=== PATIENT | male | born 1995 | race African-American/Black ===

== ENCOUNTER 2017-06-28 22:05 | Inpatient (IN) | payer OTHER ==
[~2017-06-28] VITALS: Ht 180.3 cm; Wt 70.8 kg
[2017-06-29] MEDS ORDERED: MORPHINE SULFATE 4 MG/ML CPJ (NOT FOR IM USE) IV ONE (02:15)
[2017-06-29] MEDS ORDERED: ONDANSETRON HCL 4MG/2ML VIAL IV ONE (02:15)
[2017-06-29 02:37] LABS: HEMATOCRIT. 46.2 % (42.0-52.0); HEMOGLOBIN. 16.2 g/dL (14.0-18.0); MEAN CORPUSCULAR HEMOGLOBIN 31.3 pg (28.0-32.0); MEAN CORPUSCULAR VOLUME 89.2 fL (80.0-94.0); PLATELET 220 x1000/uL (130-400); RED BLOOD CELL COUNT 5.18 mill/uL (4.7-6.1); RED CELL DISTRIBUTION WIDTH 12.5 % (11.6-14.6)
[2017-06-29] MEDS ORDERED: MORPHINE SULFATE 2 MG/ML CPJ (NOT FOR IM USE) IV NR (02:45)
[2017-06-29 02:49] LABS: CARBON DIOXIDE 28 mEq/L (21-32); CHLORIDE 103 mEq/L (98-107)
[2017-06-29] MEDS ORDERED: PIPERACILLIN/TAZOBACTAM 3.375GM/50ML PREMIX IV SCH ×2 (04:45→05:00)
[2017-06-29] MEDS ORDERED: CEFTRIAXONE SODIUM 1 G/VIAL IV ONE (04:45)
[2017-06-29] MEDS ORDERED: SKIN ADHESIVE 0.7 GM EA TOP ONE (06:58)
[2017-06-29] MEDS ORDERED: BUPIVACAINE HCL 0.5% (5MG/ML) 50ML ONE (06:58)
[2017-06-29] MEDS ORDERED: DEXT 5%/0.45% NACL KCL 20MEQ/L 1,000 ML IV SCH (08:26)
[2017-06-29] MEDS ORDERED: FENTANYL CITRATE/PF 50MCG/ML 2ML VIAL ONE ×2 (08:29→08:57)
[2017-06-29] MEDS ORDERED: PROPOFOL 200MG/20ML VIAL IV ONE (08:29)
[2017-06-29] MEDS ORDERED: MIDAZOLAM HCL 2 MG/2 ML VIAL ONE (08:29)
[2017-06-29] MEDS ORDERED: MORPHINE SULFATE 2 MG/ML CPJ (NOT FOR IM USE) IV PRN ×3 (08:30→08:45)
[2017-06-29] MEDS ORDERED: LIDOCAINE HCL 1% 20ML VIAL (Pyxis) INJ ONE (08:30)
[2017-06-29] MEDS ORDERED: HYDROCODONE/ACETAMINOPHEN 5/325MG TABLET PO PRN ×4 (08:30→08:45)
[2017-06-29] MEDS ORDERED: ONDANSETRON HCL 4MG/2ML VIAL IV PRN ×3 (08:30→11:15)
[2017-06-29] MEDS ORDERED: MORPHINE SULFATE 4 MG/ML CPJ (NOT FOR IM USE) IV PRN (08:30)
[2017-06-29] MEDS ORDERED: ROCURONIUM BROMIDE 10MG/ML VIAL 5ML IV ONE (08:30)
[2017-06-29] MEDS ORDERED: SUCCINYLCHOLINE CHLORIDE 200MG/10ML VIAL IV ONE (08:30)
[2017-06-29] MEDS ORDERED: GLYCOPYRROLATE 0.2 MG/ML 2ML VIAL ONE (09:16)
[2017-06-29] MEDS ORDERED: NEOSTIGMINE METHYLSULFATE 1MG/ML 10 ML VIAL ONE (09:16)
[2017-06-29] MEDS ORDERED: DEXAMETHASONE 4MG/ML 1ML VIAL ONE (09:18)
[2017-06-29] MEDS ORDERED: METOCLOPRAMIDE HCL 10MG/2ML VIAL ONE (09:19)
[2017-06-29] MEDS ORDERED: ONDANSETRON HCL 4MG/2ML VIAL ONE (09:19)
[2017-06-29 09:27] LABS: PLATELET ESTIMATE NORMAL
[2017-06-29] MEDS ORDERED: SODIUM CHLORIDE 0.9% 1,000 ML IV SCH (11:14)
[2017-06-29] MEDS ORDERED: HYDROMORPHONE HCL/PF 2MG/ML CPJ IV PRN (11:15)
[2017-06-29 11:45] VITALS: BP 135/58
[2017-06-29 12:30] VITALS: BP 135/58
[2017-06-29] MEDS ORDERED: SODIUM CHLORIDE 0.9% 10ML VIAL ONE (14:45)
[2017-06-29] MEDS ORDERED: IOHEXOL-300 100 ML BOTTLE ONE (14:45)
[2017-06-29] MEDS: DEXT 5%/0.45% NACL KCL 20MEQ/L 1,000 ML IV SCH (15:00)
[2017-06-29 16:00] VITALS: BP 118/56
[2017-06-29 20:00] VITALS: BP 126/57
[2017-06-30] VITALS: BP 100/44
[2017-06-30 04:00] VITALS: BP 95/44
[2017-06-30 06:13] LABS: BASOPHILS % 0.1 % (0.0-2.0); EOSINOPHILS % 0.8 % (0.0-5.0); HEMATOCRIT. 40.7 % (42.0-52.0); HEMOGLOBIN. 14.6 g/dL (14.0-18.0); LYMPHOCYTES % 13.7 % (20.0-50.0); MEAN CORPUSCULAR HEMOGLOBIN 31.7 pg (28.0-32.0); MEAN CORPUSCULAR VOLUME 88.6 fL (80.0-94.0); MONOCYTES % 7.1 % (2.0-8.0); NEUTROPHILS % 78.3 % (40.0-76.0); PLATELET 235 x1000/uL (130-400); RED BLOOD CELL COUNT 4.59 mill/uL (4.7-6.1); RED CELL DISTRIBUTION WIDTH 12.3 % (11.6-14.6)
[2017-06-30 06:22] LABS: CARBON DIOXIDE 25 mEq/L (21-32); CHLORIDE 105 mEq/L (98-107)
[2017-06-30] MEDS: DEXT 5%/0.45% NACL KCL 20MEQ/L 1,000 ML IV SCH ×2 (07:33→09:00)
[2017-06-30 08:00] VITALS: BP 130/75
[2017-06-30 11:18] VITALS: BP 122/64
[2017-06-30 12:00] VITALS: BP 122/64
== END 2017-06-30 15:00 | disposition home or self-care (01) | DRG 225 ==
LOC: ER 06-29 03:49 → 6EST 06-29 05:32 → EDBEDREQ 06-29 05:56 → ER 06-29 07:05
PROVIDERS: ADMIT Internal Medicine; ATTEND Internal Medicine
PROC: 0DTJ4ZZ Resection of Appendix, Percutaneous Endoscopic Approach (ICD-10-PCS; principal; 2017-06-29 08:30)
DX: K35.80 Unspecified acute appendicitis (principal); D72.829 Elevated white blood cell count, unspecified; F17.210 Nicotine dependence, cigarettes, uncomplicated
CPT/HCPCS: 36415; 73706; 74177; 80048; 80053; 85025; 88304; 96374; 96375; 99285; A4216; J0330; J1100; J2250; J2270; J2405; J2543; J2704; J2710; J2765; J3010; J3490; J7030; J7120; Q9967